=== PATIENT | female | born 1985 | race Caucasian/White ===

== ENCOUNTER 2024-01-09 05:03 | Emergency (ER) | payer MEDICAID ==
[~2024-01-09] VITALS: Ht 157.5 cm; Wt 61.2 kg
[2024-01-09 05:07] VITALS: BP 115/67; PULSE 89; RESP 16; TEMP 97.3; O2SAT 99
[2024-01-09 05:37] LABS: APPEARANCE,URINE CLEAR (CLEAR); BILIRUBIN,URINE NEGATIVE (NEGATIVE); BLOOD, URINE 3+ (NEGATIVE); LEUKOCYTE ESTERASE ,URINE 2+ (NEGATIVE); NITRITE, URINE NEGATIVE (NEGATIVE); PH,URINE 6.5 (5.0-9.0); PROTEIN,URINE TRACE (NEGATIVE); UGLUCOSE NEGATIVE (NEGATIVE); UROBILINOGEN,URINE 0.2 EU/dL (0.2 - 1)
[2024-01-09 05:41] VITALS: O2SAT 99
[2024-01-09 05:50] LABS: COLOR,URINE YELLOW (YELLOW)
[2024-01-09 05:51] LABS: BACTERIA,URINE 1+ /HPF (None Seen); RBC,URINE >100 /HPF (0-5); WBC,URINE >25 (MANY) /HPF (0-5)
[2024-01-09] MEDS ORDERED: CEPH-588 PO (06:31)
[2024-01-09 06:41] VITALS: BP 110/84; PULSE 84; RESP 16; TEMP 98.1; O2SAT 99
== END 2024-01-09 06:40 | disposition home or self-care (01) ==
LOC: MED 05:03
DX: N30.01 Acute cystitis with hematuria (principal)
CPT/HCPCS: 81001; 81025; 87086; 99283